=== PATIENT | male | born 2000 | race Hispanic/Latino ===

== ENCOUNTER 2022-03-24 17:07 | Emergency (ER) | payer OTHER, MEDICAID | END 2022-03-24 19:05 | disposition home or self-care (01) | LOC: CSHERS 17:07 | DX: S13.4XXA Sprain of ligaments of cervical spine, initial encounter (principal); S39.012A Strain of muscle, fascia and tendon of lower back, initial encounter; F17.210 Nicotine dependence, cigarettes, uncomplicated; V89.2XXA Person injured in unspecified motor-vehicle accident, traffic, initial encounter | CPT/HCPCS: 70450 ==

== ENCOUNTER 2022-04-24 01:13 | Emergency (ER) | payer MEDICAID ==
[2022-04-24] MEDS ORDERED: Ipratropium/Albuterol 3 ML NEB ONE (01:38)
[2022-04-24] MEDS ORDERED: predniSONE 20 MG TAB ONE (01:39)
[2022-04-24 02:15] LABS: SARS-CoV-2 NAA Rapid Test Not Detected (NotDetected)
== END 2022-04-24 03:30 | disposition home or self-care (01) ==
LOC: CSHERS 01:13
DX: J45.901 Unspecified asthma with (acute) exacerbation (principal); Z20.822 Contact with and (suspected) exposure to COVID-19
CPT/HCPCS: 71045; 94760; J7512; J7620

== ENCOUNTER 2022-05-21 12:09 | Emergency (ER) | payer MEDICAID ==
[2022-05-21] MEDS ORDERED: Dicyclomine 20 MG/2 ML VIAL ONE (13:43)
[2022-05-21] MEDS ORDERED: Ondansetron ODT 4 MG TAB ONE (13:44)
[2022-05-21 14:34] LABS: SARS-CoV-2 NAA Rapid Test Not Detected (NotDetected)
== END 2022-05-21 15:52 | disposition home or self-care (01) ==
LOC: CSHERS 12:09
DX: R11.2 Nausea with vomiting, unspecified (principal); J45.909 Unspecified asthma, uncomplicated; Z20.822 Contact with and (suspected) exposure to COVID-19
CPT/HCPCS: 96372; 99284; Q0162